=== PATIENT | female | born 1975 | race Caucasian/White ===

== ENCOUNTER → 2017-07-02 | Outpatient (CLI) | payer OTHER ==
[~2017-07-02] MED LIST: LEVO150T7 PO; LEXA1TAB PO; ROCA0.5C PO
--- NOTE | 2017-07-03 10:10 | REP ---
MRI RIGHT FOREARM: TECHNIQUE: Multiple sequences obtained in the axial, coronal, and sagittal planes. There is ill-defined high signal marrow edema on T2-weighted images in the proximal radial shaft. Findings suggest a bone bruise at this location. The remaining visualized osseous structures demonstrate no abnormal marrow signal. Small amount of focal edema is seen in the superficial soft tissues of the mid to proximal forearm just medial to the shaft of the ulna. There is a small amount of fluid in the distal radioulnar joint and also at the anterior margin of the radiocarpal joint. No other soft tissue abnormalities are seen. IMPRESSION: Marrow edema involving the proximal shaft of the radius may represent a bone bruise. Nonspecific focal soft tissue edema in the mid to proximal forearm just medial to the shaft of the ulna. Small amount of fluid in the distal radioulnar joint as well as at the anterior margin of the radiocarpal joint. Signed by Arthur Thomas MD 07/03/2017 08:36 P
--- NOTE | 2017-07-03 10:10 | REP ---
MRI RIGHT ELBOW: TECHNIQUE: Multiple sequences in the axial, coronal and sagittal planes. There is mild ill-defined high signal in the common extensor tendon along the lateral humeral epicondyle compatible with lateral epicondylitis. In addition, there is a small focus of increased signal along the under surface of the tendon complex consistent with a small partial under surface tear. Common flexor tendon medially demonstrates no abnormal signal. There is mild diffuse bone marrow edema involving the very proximal radial shaft, which may represent bone contusion or bone bruise. No other area of abnormal narrow signal is seen. The medial and lateral collateral ligaments are intact. Triceps, biceps, brachialis and brachial radialis are intact and unremarkable. There is a normal amount of joint fluid. No ganglion cyst is seen. I see no other significant abnormality. IMPRESSION: Findings compatible with lateral epicondylitis with a small partial under surface tear of the common extensor tendon. There is diffuse marrow edema involving the very proximal aspect of the radial shaft which may represent a bone bruise. Signed by Arthur Thomas MD 07/03/2017 08:36 P
== END ==
LOC: M RAD 17:00
PROVIDERS: ATTEND Orthopaedic Surgery
DX: M77.11 Lateral epicondylitis, right elbow (principal)

== ENCOUNTER 2018-01-02 06:57 | Day surgery (SDC) | payer OTHER ==
[2018-01-02] MEDS ORDERED: LR 1,000 ML IV ×2 (07:15→11:15)
[2018-01-02] MEDS ORDERED: MIDAZOLAM INJ 2 MG/2 ML VIAL (J2250) As Ordered (09:33)
[2018-01-02] MEDS ORDERED: fentaNYL 100 MCG/2 ML INJECTION (J3010) As Ordered (09:34)
[2018-01-02] MEDS ORDERED: LIDOCAINE 2% INJ 100 MG/5 ML SDV (FOR ANES.) As Ordered (09:37)
[2018-01-02] MEDS ORDERED: PROPOFOL 200 MG/20 ML VIAL As Ordered ×4 (09:37→10:40)
[2018-01-02] MEDS ORDERED: ONDANSETRON 4MG/2ML VIAL (J2405) As Ordered (10:15)
[2018-01-02] MEDS ORDERED: dexameTHASONE 4 MG/ML 1ML VIAL (J1100) As Ordered ×2 (10:24)
[2018-01-02] MEDS: LIDOCAINE W/EPINEPHRINE 1% 20ML VIAL As Ordered ×2 (10:44)
[2018-01-02] MEDS ORDERED: ONDANSETRON 4MG/2ML VIAL (J2405) IV (11:15)
[2018-01-02] MEDS ORDERED: fentaNYL 100 MCG/2 ML INJECTION (J3010) IV (11:15)
[2018-01-02] MEDS: NORCO, ANEXSIA 5/325MG TABLET (HYDROcodone/ACETAMINOPHEN) PO (11:17)
== END 2018-01-02 12:45 | disposition home or self-care (01) ==
LOC: M SDC 06:57
DX: I87.2 Venous insufficiency (chronic) (peripheral) (principal); E66.9 Obesity, unspecified; E03.9 Hypothyroidism, unspecified; F41.9 Anxiety disorder, unspecified; Z88.1 Allergy status to other antibiotic agents; Z88.8 Allergy status to other drugs, medicaments and biological substances; Z79.899 Other long term (current) drug therapy
CPT/HCPCS: 36475

== ENCOUNTER → 2018-01-19 | Outpatient (CLI) | payer OTHER | LOC: M RAD 15:55 | DX: I87.2 Venous insufficiency (chronic) (peripheral) (principal) | CPT/HCPCS: 93971 ==

== ENCOUNTER → 2018-08-08 | Outpatient (CLI) | payer OTHER ==
[~2018-08-08] MED LIST changes: +LEVO100T5 PO; +MUPI2OI; +OMEP20CA3 PO
[2018-08-08 10:11] LABS: HEMOGLOBIN A1c 5.7 %
[2018-08-08 10:30] LABS: ALBUMIN 4.2 GM/DL (3.2-5.2); ALT/SGPT 43 U/L (12-78); BILIRUBIN,TOTAL 0.5 MG/DL (0.2-1.0); BLOOD UREA NITROGEN 14 MG/DL (7-18); CALCIUM LEVEL 8.4 MG/DL (8.5-10.1); CARBON DIOXIDE LEVEL 30 MEQ/L (21-32); CHLORIDE LEVEL 101 MEQ/L (98-107); CREATININE FOR GFR 0.69 MG/DL (0.55-1.30); GLOMERULAR FILTRATION RATE > 60.0 (>58); GLUCOSE, FASTING 87 MG/DL (70-100); POTASSIUM SERUM 3.9 MEQ/L (3.5-5.1); SODIUM LEVEL 139 MEQ/L (136-145); THYROXINE (T4) 8.7 UG/DL (4.5-12.0); TOTAL PROTEIN 7.5 GM/DL (6.4-8.2)
[2018-08-10 09:39] LABS: TOTAL T3 96.7 NG/DL (60.0-181.0)
== END ==
LOC: M LAB 09:13
PROVIDERS: ATTEND Family Medicine
DX: E03.9 Hypothyroidism, unspecified (principal); R73.01 Impaired fasting glucose

== ENCOUNTER 2018-08-24 08:05 | Day surgery (SDC) | payer OTHER ==
[~2018-08-24] VITALS: Ht 162.6 cm; Wt 113.9 kg
[2018-08-24] MEDS ORDERED: LR 1,000 ML IV ONE (08:15)
[2018-08-24] MEDS ORDERED: ONDANSETRON 4MG/2ML VIAL (J2405) As Ordered ONE (08:54)
[2018-08-24] MEDS ORDERED: PROPOFOL 200 MG/20 ML VIAL As Ordered ONE (08:54)
[2018-08-24] MEDS ORDERED: MIDAZOLAM INJ 2 MG/2 ML VIAL (J2250) As Ordered ONE (08:54)
[2018-08-24] MEDS ORDERED: LIDOCAINE 2% INJ 100 MG/5 ML SDV (FOR ANES.) As Ordered ONE (08:54)
[2018-08-24] MEDS ORDERED: METOCLOPRAMIDE INJ 10MG/2ML VIAL (J2765) As Ordered ONE (08:54)
[2018-08-24] MEDS ORDERED: fentaNYL 100 MCG/2 ML INJECTION (J3010) As Ordered ONE (08:54)
[2018-08-24] MEDS ORDERED: ROPIvacaine 0.5% 30 ML INJECTION (J2795 PER 1MG) As Ordered ONE (09:25)
[2018-08-24] MEDS ORDERED: KETOROLAC 60 MG/2 ML VIAL (J1885) As Ordered ONE (10:53)
[2018-08-24] MEDS ORDERED: fentaNYL 100 MCG/2 ML INJECTION (J3010) IV PRN (11:30)
[2018-08-24] MEDS ORDERED: ONDANSETRON 4MG/2ML VIAL (J2405) IV PRN (11:30)
[2018-08-24] MEDS ORDERED: ONDANSETRON 4 MG TAB (S0181) PO PRN (11:30)
[2018-08-24] MEDS ORDERED: MORPHINE 4 MG/ML 1ML VIAL/SYRINGE (J2270) IV PRN (11:30)
[2018-08-24] MEDS ORDERED: PERCOCET 5MG/325MG TAB PO PRN ×2 (11:30)
[2018-08-24] MEDS ORDERED: HYDROMORPHONE HCL 0.5 MG/ 0.5 ML SYRINGE (J1170 PER 1) IV PRN (11:30)
[2018-08-24] MEDS ORDERED: LR 1,000 ML IV SCH (11:30)
[2018-08-24] MEDS ORDERED: ACETAMINOPHEN TAB 650MG DOSE (2X325MG) PO PRN (11:30)
[2018-08-24 13:10] VITALS: BP 153/69
--- NOTE | 2018-08-24 13:16 | RO ---
DATE OF PROCEDURE: 08/24/2018 PREOPERATIVE DIAGNOSIS: Left knee pain plus potential medial meniscus tear. POSTOPERATIVE DIAGNOSIS: Left knee pain soft tissue impingement. PLANNED PROCEDURE: Left knee arthroscopy, plus intra-articular surgery, plus partial medial meniscectomy. PROCEDURE PERFORMED: Left knee arthroscopy, soft tissue debridement, and chondroplasty medial femoral condyle and patellofemoral joint. SURGEON: Francisco Javier Reyna MD ASSESSOR: Kavita Brandon [employer] COMPENSATION CLAIMS ASSISTANT: Dr. Lima TYPE OF ANESTHETIC: General anesthesia. OPERATIVE PREAMBLE: This is a 43-year-old female with persistent medial sided left knee pain and clicking. She had a click when I examined her in the preoperative holding. She had persistent knee pain on the medial side, but no real block to extension and no evidence of instability of the MCL, ACL, PCL or LCL. She still wished to go ahead with the arthroscopy. We discussed pros and cons, risks and benefits of going ahead with surgery. DESCRIPTION OF PROCEDURE: The patient was brought to the operating theater and placed supine on the operating room table. I stress positioned and reduced on the lateral side. A tourniquet was applied to the thigh. 2 grams of intravenous (IV) Ancef were administered. A preoperative time out and check was performed. The knee was already marked by myself preoperatively. We confirmed patient and site. The limb was prepped and draped in the usual sterile fashion. The leg was elevated and the tourniquet inflated to 250 mmHg. I began by making an anterolateral portal. I performed a diagnostic arthroscopy of the entire knee. I went into the lateral gutters. There was no obvious loose body. I visualized and palpated the popliteus tendon which appeared normal. I visualized the patellofemoral joint. There was a moderate sized fat pad that I debrided all the way down to the insertion of the patellar tendon. I debrided the gutters. There was a small plica on the lateral side that I also debrided and removed. Then I went to the medial side of the knee. This was quite difficult given her elevated body mass index (BMI) and tight joint spaces. Eventually I was able to get into the medial compartment. The meniscus had a small wave, but no obvious fraying or undersurface tearing. No capsular sided tearing. The roots appeared normal in their insertion. There was a small area of what looked like synovitis or a little perhaps small tear near the root. I debrided this on the posterior aspect overlying the root of the medial meniscus. The root was still normal after I debrided the small area away. I created an anteromedial portal as well as a superolateral portal to work through with my 4.0 mm shaver to debride away the fat pad. I also debrided away all the soft tissues that appeared to be impinging on the medial side of the knee. I debrided this down to the deep layers of the MCL. This was intact. The MCL appeared taut without evidence of injury. The was some soft tissue impinging that appeared to go over top of the meniscus in full extension and I debrided those away, ensuring that the meniscus was kept intact as well as the intrameniscal ligament. I then placed the leg in [id number] and examined the lateral compartment. This appeared normal without evidence of chondral damages or changes. The lateral meniscus appeared normal. In terms of chondral surfaces on the lateral compartment the tibial side appeared normal. No changes on the tibial side or femoral side. In terms on the medial side, there is definitely grade 1-2 changes and definitely some fraying on the superficial surface on the tibial side. In terms of the chondral surface on the medial distal femur there was some small areas of partial thickness damage due to the scope. I debrided these down to smooth borders. Otherwise the cartilage appeared normal and healthy with only some mild softening. There was no obvious extrusion of the meniscus on the medial side. As I stated earlier, there was a small wave, but no obvious undersurface fragment or areas of loosening that I could pull into the joint. No obvious tearing. No radial tears to speak of. More of degenerative appearing meniscus with moderate to large amount of prepatellar fat pad and soft tissue impingement all the way up into the notch and mostly on the medial side of the knee. This could have definitely been from her partial MCL tear. I also debrided away the ligament mucosa and examined the ACL and PCL ligaments. The ACL appeared normal. I performed anterior and posterior drawer test. The ACL appeared solid. The PCL did have one area proximally that appeared to be a possible small partial avulsion. This looked like an old hematoma right at the 11 o'clock insertion of the PCL and medial side of the notch. I did debride this a little bit, but really ensured that the PCL was intact the entire time. I did do a partial Gillquist view of the medial side to really the examine the posterior horn of the medial meniscus and it did really appear intact. As stated, there was a small area of soft tissue overlying this that I did debride away, but ensured that the root was intact. Once I was satisfied with the procedure, debridement, and examined all compartments, I drained the knee of any remaining intra-articular fluid. Prior to the case, I had instilled about 4-5 mL in each portal site of lidocaine. I closed the portals with subcutaneous #3-0 Monocryl suture and overlaid this with Steri-Strips, 4x8 gauze and ABD with 6 inch Sae wrap. The tourniquet was taken down. The patient was transferred off the operating table and taken to the postanesthetic care unit in stable condition. All sponge, needle and instrument counts were correct and there were no complications or excess blood loss associated with the procedure. Plan for the patient is to be placed in a hinged knee brace which we have gone ahead and done. This is unlocked. She will be weight bearing as tolerated on crutches as she needs. I will see the patient in followup in 2-3 days for followup and to see how she is doing. I will also prescribe one oral aspirin a day for venous thromboembolism (VTE) prophylaxis given that she is an overweight relatively young female.
== END 2018-08-24 13:30 | disposition home or self-care (01) ==
LOC: M SDC 08:05
PROVIDERS: ATTEND Orthopaedic Surgery Sports Medicine
DX: M25.562 Pain in left knee (principal); M67.52 Plica syndrome, left knee; K58.9 Irritable bowel syndrome, unspecified; Z88.1 Allergy status to other antibiotic agents; Z79.899 Other long term (current) drug therapy; E03.9 Hypothyroidism, unspecified; E20.9 Hypoparathyroidism, unspecified; M79.605 Pain in left leg
CPT/HCPCS: 29877; J0690; J1885; J2250; J2405; J2765; J2795; J3010

== ENCOUNTER → 2019-05-04 | Outpatient (CLI) | payer OTHER ==
[~2019-05-04] MED LIST changes: -OMEP20CA3 PO; +OMEP20CA4 PO
--- NOTE | 2019-05-04 17:43 | REP ---
MRI LEFT KNEE: TECHNIQUE: Axial proton density fat saturation, sagittal proton density T2 STIR, water excitation, coronal proton density, proton density fat saturation. There is a tear of the posterior horn of the medial meniscus. Lateral meniscus is intact. Cruciate and collateral ligaments are intact. Extensor mechanism is intact. 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 Otherwise, there is mild global chondromalacia elsewhere. There is no bone marrow edema or occult fracture. Medial and lateral patellar retinacula are intact. There is a moderate joint effusion. There is diffuse synovial thickening and edema particularly superiorly. There is no popliteal cyst. IMPRESSION: There is a tear of the posterior horn of the medial meniscus. 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 There is a moderate joint effusion with diffuse synovial thickening and edema particularly superiorly. Electronically Signed by Arthur Thomas MD 05/05/2019 02:17 P
== END ==
LOC: M RAD 14:25
PROVIDERS: ATTEND Orthopaedic Surgery Sports Medicine
DX: S83.242D Other tear of medial meniscus, current injury, left knee, subsequent encounter (principal); M22.42 Chondromalacia patellae, left knee; M25.462 Effusion, left knee; R60.0 Localized edema

== ENCOUNTER → 2019-07-22 | Outpatient (REF) | payer OTHER ==
[~2019-07-22] MED LIST changes: +OMEP-172 PO; -OMEP20CA4 PO
[2019-07-22 17:27] LABS: BASO # 0.1 10^3/uL (0.0-0.2); BASO % 0.8 % (0.0-1.0); EOS # 0.2 10^3/uL (0.0-0.5); EOS % 2.8 % (0.0-3.0); HEMATOCRIT 45.6 % (36.0-47.0); HEMOGLOBIN 15.5 g/dl (12.0-15.5); LYMPH # 2.7 10^3/uL (1.5-5.0); LYMPH % 42.4 % (24.0-44.0); MEAN CORPUSCULAR VOLUME 91.2 fl (80.0-96.0); MONO # 0.6 10^3/uL (0.0-0.8); MONO % 9.2 % (0.0-5.0); NEUTROPHILS # 2.9 10^3/uL (1.5-8.5); NEUTROPHILS % 44.6 % (36.0-66.0); PLATELET COUNT, AUTOMATED 256 10^3/uL (150-450); WHITE BLOOD COUNT 6.4 10^3/uL (4.0-10.0)
[2019-07-22 17:50] LABS: ALBUMIN 4.3 GM/DL (3.2-5.2); ALT/SGPT 79 U/L (12-78); BILIRUBIN,TOTAL 0.4 MG/DL (0.2-1.0); BLOOD UREA NITROGEN 10 MG/DL (7-18); CALCIUM LEVEL 8.6 MG/DL (8.5-10.1); CARBON DIOXIDE LEVEL 27 MEQ/L (21-32); CHLORIDE LEVEL 104 MEQ/L (98-107); CREATININE FOR GFR 0.75 MG/DL (0.55-1.30); GLOMERULAR FILTRATION RATE > 60.0 (>58); GLUCOSE, FASTING 94 MG/DL (70-100); IRON (FE) 93 UG/DL (50-170); MAGNESIUM LEVEL 2.2 MG/DL (1.8-2.4); SODIUM LEVEL 138 MEQ/L (136-145); TOTAL PROTEIN 8.1 GM/DL (6.4-8.2)
== END ==
LOC: M SFHCCLAY 10:49
PROVIDERS: ATTEND Family Medicine
DX: R21 Rash and other nonspecific skin eruption (principal); L29.3 Anogenital pruritus, unspecified; E55.9 Vitamin D deficiency, unspecified; E03.9 Hypothyroidism, unspecified; M05.79 Rheumatoid arthritis with rheumatoid factor of multiple sites without organ or systems involvement

== ENCOUNTER → 2020-04-18 | Outpatient (REF) | payer OTHER ==
[~2020-04-18] MED LIST changes: -OMEP-172 PO; +OMEP1CAP73 PO
[2020-04-19 13:47] LABS: FREE T4 1.84 NG/DL (0.76-1.46); THYROID STIMULATING HORMONE 0.2 uIU/ML (0.358-3.740); TOTAL T3 120.1 NG/DL (60.0-181.0)
== END ==
LOC: M SFHCCLAY 15:21
PROVIDERS: ATTEND Family Medicine
DX: E03.9 Hypothyroidism, unspecified (principal)

== ENCOUNTER → 2020-05-15 | Outpatient (CLI) | payer OTHER ==
[2020-05-15 17:09] LABS: BASO # 0.1 10^3/uL (0.0-0.2); BASO % 0.5 % (0.0-1.0); EOS # 0.1 10^3/uL (0.0-0.5); EOS % 0.8 % (0.0-3.0); HEMATOCRIT 44.9 % (36.0-47.0); HEMOGLOBIN 14.7 g/dl (12.0-15.5); LYMPH # 4.1 10^3/uL (1.5-5.0); MEAN CORPUSCULAR HEMOGLOBIN 29.6 pg (27.0-33.0); MEAN CORPUSCULAR HGB CONC 32.7 g/dl (32.0-36.5); MEAN CORPUSCULAR VOLUME 90.3 fl (80.0-96.0); MONO # 0.6 10^3/uL (0.0-0.8); MONO % 6.1 % (0.0-5.0); NEUTROPHILS # 4.9 10^3/uL (1.5-8.5); NEUTROPHILS % 50.3 % (36.0-66.0); PLATELET COUNT, AUTOMATED 307 10^3/uL (150-450); RED BLOOD COUNT 4.97 10^6/uL (4.00-5.40); WHITE BLOOD COUNT 9.8 10^3/uL (4.0-10.0)
[2020-05-15 19:19] LABS: ALBUMIN 4.2 GM/DL (3.2-5.2); ALT/SGPT 65 U/L (12-78); BILIRUBIN,TOTAL 0.3 MG/DL (0.2-1.0); BLOOD UREA NITROGEN 13 MG/DL (7-18); CALCIUM LEVEL 9.1 MG/DL (8.5-10.1); CARBON DIOXIDE LEVEL 29 MEQ/L (21-32); CHLORIDE LEVEL 101 MEQ/L (98-107); CREATININE FOR GFR 0.75 MG/DL (0.55-1.30); GLOMERULAR FILTRATION RATE > 60.0 (>58); GLUCOSE, FASTING 79 MG/DL (70-100); POTASSIUM SERUM 3.9 MEQ/L (3.5-5.1); SODIUM LEVEL 136 MEQ/L (136-145); TOTAL PROTEIN 8.1 GM/DL (6.4-8.2)
== END ==
LOC: M LAB 14:05
PROVIDERS: ATTEND Physician Assistant
DX: M06.09 Rheumatoid arthritis without rheumatoid factor, multiple sites (principal)

== ENCOUNTER → 2020-07-10 | Outpatient (REF) | payer OTHER ==
[2020-07-11 12:00] LABS: BASO # 0.1 10^3/uL (0.0-0.2); BASO % 0.6 % (0.0-1.0); EOS # 0.1 10^3/uL (0.0-0.5); EOS % 0.9 % (0.0-3.0); HEMATOCRIT 47.2 % (36.0-47.0); HEMOGLOBIN 15.5 g/dl (12.0-15.5); LYMPH # 4.3 10^3/uL (1.5-5.0); LYMPH % 45.3 % (24.0-44.0); MEAN CORPUSCULAR HEMOGLOBIN 30.5 pg (27.0-33.0); MEAN CORPUSCULAR HGB CONC 32.8 g/dl (32.0-36.5); MEAN CORPUSCULAR VOLUME 92.7 fl (80.0-96.0); MONO # 0.5 10^3/uL (0.0-0.8); MONO % 5.3 % (0.0-5.0); NEUTROPHILS # 4.5 10^3/uL (1.5-8.5); NEUTROPHILS % 47.6 % (36.0-66.0); PLATELET COUNT, AUTOMATED 290 10^3/uL (150-450); RED BLOOD COUNT 5.09 10^6/uL (4.00-5.40); WHITE BLOOD COUNT 9.4 10^3/uL (4.0-10.0)
[2020-07-11 12:32] LABS: ALBUMIN 4.2 GM/DL (3.2-5.2); ALT/SGPT 52 U/L (12-78); BILIRUBIN,TOTAL 0.6 MG/DL (0.2-1.0); BLOOD UREA NITROGEN 12 MG/DL (7-18); CALCIUM LEVEL 9.2 MG/DL (8.5-10.1); CARBON DIOXIDE LEVEL 34 MEQ/L (21-32); CHLORIDE LEVEL 101 MEQ/L (98-107); CHOLESTEROL LEVEL 253 MG/DL (<200); CHOLESTEROL RISK RATIO 3.513 (<5); CREATININE FOR GFR 0.77 MG/DL (0.55-1.30); GLOMERULAR FILTRATION RATE > 60.0 (>58); GLUCOSE, FASTING 82 MG/DL (70-100); HDL CHOLESTEROL 72 MG/DL (>40); LDL CHOLESTEROL 129 MG/DL (<100); NON-HDL-C 181 MG/DL; POTASSIUM SERUM 4.9 MEQ/L (3.5-5.1); SODIUM LEVEL 137 MEQ/L (136-145); TOTAL PROTEIN 8.5 GM/DL (6.4-8.2); TRIGLYCERIDES LEVEL 259 MG/DL (<150)
== END ==
LOC: M LABDRAWC 11:26
PROVIDERS: ATTEND Physician Assistant
DX: Z79.899 Other long term (current) drug therapy (principal)

== ENCOUNTER → 2020-10-05 | Outpatient (CLI) | payer OTHER ==
--- NOTE | 2020-10-05 17:02 | REP ---
INDICATION: RT KNEE PAIN. COMPARISON: None. TECHNIQUE: There are four views: FINDINGS: Mineralization and joint spaces are unremarkable. There is no fracture or dislocation. There are no calcifications or foreign bodies. There is no effusion. IMPRESSION: Negative right knee. <Electronically signed by Arthur Lino > 10/05/20 1951
== END ==
LOC: M SOG 15:55
PROVIDERS: ATTEND Orthopaedic Surgery Sports Medicine
DX: M17.0 Bilateral primary osteoarthritis of knee (principal)

== ENCOUNTER → 2020-10-09 | Outpatient (CLI) | payer BC, OTHER ==
[2020-10-09 18:55] LABS: HEMATOCRIT 46.3 % (36.0-47.0); HEMOGLOBIN 15.6 g/dl (12.0-15.5); MEAN CORPUSCULAR HGB CONC 33.7 g/dl (32.0-36.5); MEAN CORPUSCULAR VOLUME 91.9 fl (80.0-96.0); PLATELET COUNT, AUTOMATED 320 10^3/uL (150-450); RED BLOOD COUNT 5.04 10^6/uL (4.00-5.40); WHITE BLOOD COUNT 11.6 10^3/uL (4.0-10.0)
[2020-10-09 19:27] LABS: HEMOGLOBIN A1c 5.6 %
[2020-10-09 20:08] LABS: ATYPICAL LYMPH 6 % (0-5); BASOPHILS 2 % (0-1); EOSINOPHILS 2 % (0-3); LYMPHOCYTES 44 % (16-44); MONOCYTES 3 % (0-5); NEUTROPHILS 43 % (28-66); PLATELET ESTIMATE NORMAL (NORMAL)
[2020-10-09 21:18] LABS: ALBUMIN 4.2 GM/DL (3.2-5.2); ALT/SGPT 38 U/L (12-78); BILIRUBIN,TOTAL 0.4 MG/DL (0.2-1.0); BLOOD UREA NITROGEN 16 MG/DL (7-18); CALCIUM LEVEL 9.3 MG/DL (8.5-10.1); CARBON DIOXIDE LEVEL 27 MEQ/L (21-32); CHLORIDE LEVEL 103 MEQ/L (98-107); CREATININE FOR GFR 0.74 MG/DL (0.55-1.30); FREE T4 1.67 NG/DL (0.76-1.46); GLOMERULAR FILTRATION RATE > 60.0 (>58); GLUCOSE, FASTING 105 MG/DL (70-100); POTASSIUM SERUM 4.4 MEQ/L (3.5-5.1); SODIUM LEVEL 137 MEQ/L (136-145); THYROID STIMULATING HORMONE 0.791 uIU/ML (0.358-3.740); TOTAL PROTEIN 8.6 GM/DL (6.4-8.2)
[2020-10-10 13:51] LABS: TOTAL 25(OH) VITAMIN D 20.5 NG/ML (30.0-100.0)
== END ==
LOC: M LAB 18:13
PROVIDERS: ATTEND Family Medicine
DX: R73.01 Impaired fasting glucose (principal); E55.9 Vitamin D deficiency, unspecified; E03.9 Hypothyroidism, unspecified

== ENCOUNTER → 2020-10-09 | Outpatient (REF) | payer OTHER | LOC: M SFHCCLAY 16:08 | PROVIDERS: ATTEND Family Medicine | DX: R73.01 Impaired fasting glucose (principal); E55.9 Vitamin D deficiency, unspecified; E03.9 Hypothyroidism, unspecified; M05.79 Rheumatoid arthritis with rheumatoid factor of multiple sites without organ or systems involvement ==

== ENCOUNTER → 2021-05-09 | Outpatient (CLI) | payer BC, OTHER ==
[2021-05-09 20:00] LABS: HEPATITIS B CORE ANTIBODY IGM NEGATIVE (NEGATIVE); HEPATITIS B SURFACE ANTIGEN NEGATIVE (NEGATIVE)
== END ==
LOC: M LAB 17:55
DX: R53.83 Other fatigue (principal); Z11.59 Encounter for screening for other viral diseases; Z72.89 Other problems related to lifestyle; Z79.899 Other long term (current) drug therapy; M06.09 Rheumatoid arthritis without rheumatoid factor, multiple sites

== ENCOUNTER → 2021-07-24 | Outpatient (REF) | payer OTHER | LOC: M SFHCCLAY 14:39 | PROVIDERS: ATTEND Physician Assistant | DX: R09.81 Nasal congestion (principal) ==

== ENCOUNTER → 2021-08-17 | Outpatient (CLI) | payer BC, OTHER | LOC: M WHC 13:15 | PROVIDERS: ATTEND Family Medicine | DX: Z53.9 Procedure and treatment not carried out, unspecified reason (principal) ==

== ENCOUNTER → 2021-08-17 | Outpatient (CLI) | payer BC, OTHER ==
[2021-08-17 13:33] LABS: BASO # 0.1 10^3/uL (0.0-0.2); BASO % 0.6 % (0.0-1.0); EOS # 0.1 10^3/uL (0.0-0.5); HEMOGLOBIN 15.2 g/dl (12.0-15.5); LYMPH # 4.2 10^3/uL (1.5-5.0); LYMPH % 45.4 % (24.0-44.0); MEAN CORPUSCULAR HEMOGLOBIN 31.1 pg (27.0-33.0); MEAN CORPUSCULAR HGB CONC 34.5 g/dl (32.0-36.5); MONO # 0.5 10^3/uL (0.0-0.8); MONO % 5.3 % (2.0-8.0); NEUTROPHILS # 4.4 10^3/uL (1.5-8.5); NEUTROPHILS % 47.6 % (36.0-66.0); PLATELET COUNT, AUTOMATED 305 10^3/uL (150-450); RED BLOOD COUNT 4.89 10^6/uL (4.00-5.40); WHITE BLOOD COUNT 9.3 10^3/uL (4.0-10.0)
[2021-08-17 13:52] LABS: ERYTHROCYTE SEDIMENTATION RATE 6 mm/hr (0-20)
== END ==
LOC: M LAB 12:39
DX: M06.09 Rheumatoid arthritis without rheumatoid factor, multiple sites (principal); Z79.899 Other long term (current) drug therapy

== ENCOUNTER → 2021-08-17 | Outpatient (CLI) | payer BC, OTHER ==
[2021-08-17 14:11] LABS: ALT/SGPT 46 U/L (12-78); BILIRUBIN,TOTAL 0.2 MG/DL (0.2-1.0); BLOOD UREA NITROGEN 18 MG/DL (7-18); CALCIUM LEVEL 9.4 MG/DL (8.5-10.1); CARBON DIOXIDE LEVEL 29 MEQ/L (21-32); CHLORIDE LEVEL 102 MEQ/L (98-107); CREATININE FOR GFR 0.72 MG/DL (0.55-1.30); GLOMERULAR FILTRATION RATE > 60.0 (>58); GLUCOSE, FASTING 94 MG/DL (70-100); POTASSIUM SERUM 3.7 MEQ/L (3.5-5.1); SODIUM LEVEL 136 MEQ/L (136-145); THYROID STIMULATING HORMONE 0.759 uIU/ML (0.358-3.740)
[2021-08-17 14:18] LABS: HEMOGLOBIN A1c 5.6 %
== END ==
LOC: M LAB 12:44
PROVIDERS: ATTEND Family Medicine
DX: E03.9 Hypothyroidism, unspecified (principal); R73.01 Impaired fasting glucose; E55.9 Vitamin D deficiency, unspecified

== ENCOUNTER → 2021-09-03 | Outpatient (CLI) | payer BC, OTHER | LOC: M WHC 12:06 | PROVIDERS: ATTEND Family Medicine | DX: N64.4 Mastodynia (principal) | CPT/HCPCS: 77066; G0279 ==

== ENCOUNTER → 2021-10-31 | Outpatient (CLI) | payer BC, OTHER | LOC: M SOG 08:13 | PROVIDERS: ATTEND Orthopaedic Surgery Adult Reconstructive Orthopaedic Surgery | DX: M17.11 Unilateral primary osteoarthritis, right knee (principal) ==

== ENCOUNTER → 2021-12-21 | Outpatient (CLI) | payer BC, OTHER ==
[2021-12-21 18:37] LABS: BASO # 0.1 10^3/uL (0.0-0.2); BASO % 0.5 % (0.0-1.0); EOS # 0.1 10^3/uL (0.0-0.5); EOS % 1.2 % (0.0-3.0); HEMATOCRIT 41.7 % (36.0-47.0); HEMOGLOBIN 14.5 g/dl (12.0-15.5); LYMPH # 3.5 10^3/uL (1.5-5.0); LYMPH % 36.7 % (24.0-44.0); MEAN CORPUSCULAR HEMOGLOBIN 30.9 pg (27.0-33.0); MEAN CORPUSCULAR HGB CONC 34.8 g/dl (32.0-36.5); MEAN CORPUSCULAR VOLUME 88.7 fl (80.0-96.0); MONO # 0.5 10^3/uL (0.0-0.8); MONO % 5.7 % (2.0-8.0); NEUTROPHILS # 5.3 10^3/uL (1.5-8.5); NEUTROPHILS % 55.7 % (36.0-66.0); PLATELET COUNT, AUTOMATED 274 10^3/uL (150-450); WHITE BLOOD COUNT 9.5 10^3/uL (4.0-10.0)
[2021-12-21 18:59] LABS: HEMOGLOBIN A1c 5.5 %
[2021-12-21 19:09] LABS: ALBUMIN 4.4 GM/DL (3.2-5.2); ALT/SGPT 55 U/L (12-78); BILIRUBIN,TOTAL 0.7 MG/DL (0.2-1.0); BLOOD UREA NITROGEN 19 MG/DL (7-18); CALCIUM LEVEL 9.9 MG/DL (8.5-10.1); CARBON DIOXIDE LEVEL 26 MEQ/L (21-32); CHLORIDE LEVEL 103 MEQ/L (98-107); CHOLESTEROL LEVEL 206 MG/DL (<200); CHOLESTEROL RISK RATIO 3.745 (<5); FREE T4 1.77 NG/DL (0.76-1.46); GLOMERULAR FILTRATION RATE > 60.0 (>58); GLUCOSE, FASTING 89 MG/DL (70-100); HDL CHOLESTEROL 55 MG/DL (>40); LDL CHOLESTEROL 123 MG/DL (<100); MAGNESIUM LEVEL 2.3 MG/DL (1.8-2.4); NON-HDL-C 151 MG/DL; POTASSIUM SERUM 4.8 MEQ/L (3.5-5.1); SODIUM LEVEL 138 MEQ/L (136-145); TOTAL PROTEIN 8.1 GM/DL (6.4-8.2); TRIGLYCERIDES LEVEL 141 MG/DL (<150)
[2021-12-21 19:31] LABS: TOTAL T3 104.7 NG/DL (60.0-181.0)
== END ==
LOC: M RAD 18:07
PROVIDERS: ATTEND Family Medicine
DX: I10 Essential (primary) hypertension (principal)

== ENCOUNTER → 2022-02-21 | Outpatient (CLI) | payer BC, OTHER | LOC: M RAD 17:34 | PROVIDERS: ATTEND Family Medicine | DX: M79.671 Pain in right foot (principal); M54.2 Cervicalgia ==

== ENCOUNTER → 2022-02-28 | Outpatient (CLI) | payer BC, OTHER | LOC: M PLAIMG 08:16 | PROVIDERS: ATTEND Orthopaedic Surgery Hand Surgery | DX: M79.671 Pain in right foot (principal) ==

== ENCOUNTER → 2022-02-28 | Outpatient (CLI) | payer BC, OTHER | LOC: M PLAIMG 08:12 | PROVIDERS: ATTEND Family Medicine | DX: M47.892 Other spondylosis, cervical region (principal) ==

== ENCOUNTER → 2022-05-14 | Outpatient (CLI) | payer BC, OTHER | LOC: M LABSMTC 09:06 | DX: Z01.812 Encounter for preprocedural laboratory examination (principal); Z20.822 Contact with and (suspected) exposure to COVID-19 ==

== ENCOUNTER → 2022-07-19 | Outpatient (REF) | payer OTHER ==
[2022-07-19 11:39] LABS: BASO % 0.5 % (0.0-1.0); EOS # 0.1 10^3/uL (0.0-0.5); EOS % 1.3 % (0.0-3.0); HEMOGLOBIN 15.4 g/dl (12.0-15.5); LYMPH # 2.6 10^3/uL (1.5-5.0); LYMPH % 34.4 % (24.0-44.0); MEAN CORPUSCULAR HEMOGLOBIN 30.6 pg (27.0-33.0); MEAN CORPUSCULAR HGB CONC 33.5 g/dl (32.0-36.5); MEAN CORPUSCULAR VOLUME 91.3 fl (80.0-96.0); MONO # 0.6 10^3/uL (0.0-0.8); MONO % 7.3 % (2.0-8.0); NEUTROPHILS # 4.3 10^3/uL (1.5-8.5); NEUTROPHILS % 56.2 % (36.0-66.0); PLATELET COUNT, AUTOMATED 285 10^3/uL (150-450); RED BLOOD COUNT 5.04 10^6/uL (4.00-5.40); WHITE BLOOD COUNT 7.6 10^3/uL (4.0-10.0)
[2022-07-19 11:48] LABS: HEMOGLOBIN A1c 5.4 % (4.0-6.0)
[2022-07-19 12:10] LABS: ALKALINE PHOSPHATASE 62 U/L (46-116); ALT/SGPT 34 U/L (7.0-40); AST/SGOT 26 U/L (<34); BILIRUBIN,TOTAL 0.6 MG/DL (0.3-1.2); BLOOD UREA NITROGEN 15 MG/DL (9-23); CALCIUM LEVEL 9.8 MG/DL (8.5-10.1); CARBON DIOXIDE LEVEL 30 MMOL/L (20-31); CHLORIDE LEVEL 99 MMOL/L (98-107); FREE T4 1.31 NG/DL (0.89-1.76); GLOMERULAR FILTRATION RATE > 60.0 (>58); GLUCOSE, FASTING 88 MG/DL (60-100); POTASSIUM SERUM 4.4 MMOL/L (3.5-5.1); SODIUM LEVEL 138 MMOL/L (136-145); THYROID STIMULATING HORMONE 0.201 uIU/ML (0.55-4.78); TOTAL PROTEIN 7.5 G/DL (5.7-8.2)
== END ==
LOC: M SFHCCLAY 07:39
PROVIDERS: ATTEND Family Medicine
DX: I10 Essential (primary) hypertension (principal); R73.01 Impaired fasting glucose; E55.9 Vitamin D deficiency, unspecified; E03.9 Hypothyroidism, unspecified

== ENCOUNTER → 2023-01-10 | Outpatient (CLI) | payer OTHER, BC | LOC: M SOG 08:16 | PROVIDERS: ATTEND Orthopaedic Surgery | DX: M25.561 Pain in right knee (principal) ==

== ENCOUNTER → 2023-04-15 | Outpatient (CLI) | payer BC, OTHER | LOC: M RAD 14:46 | PROVIDERS: ATTEND Family Medicine | DX: M79.675 Pain in left toe(s) (principal) ==

== ENCOUNTER → 2023-06-27 | Outpatient (REF) | payer BC, OTHER | LOC: M SFHCCLAY 18:09 | PROVIDERS: ATTEND Family Medicine | DX: D22.61 Melanocytic nevi of right upper limb, including shoulder (principal) ==

== ENCOUNTER → 2024-02-24 | Outpatient (CLI) | payer BC ==
[2024-02-24 18:44] LABS: HEMATOCRIT 44.3 % (36.0-47.0); HEMOGLOBIN 15.2 g/dl (12.0-15.5); MEAN CORPUSCULAR HEMOGLOBIN 30.1 pg (27.0-33.0); MEAN CORPUSCULAR HGB CONC 34.3 g/dl (32.0-36.5); MEAN CORPUSCULAR VOLUME 87.7 fl (80.0-96.0); PLATELET COUNT, AUTOMATED 265 10^3/uL (150-450); RED BLOOD COUNT 5.05 10^6/uL (4.00-5.40); WHITE BLOOD COUNT 7.6 10^3/uL (4.0-10.0)
[2024-02-24 18:52] LABS: ERYTHROCYTE SEDIMENTATION RATE 22 mm/hr (0-30)
[2024-02-24 19:04] LABS: HEMOGLOBIN A1c 5.8 % (4.0-6.0)
[2024-02-24 19:18] LABS: ALBUMIN 4.3 G/DL (3.2-5.2); ALKALINE PHOSPHATASE 73 U/L (46-116); ALT/SGPT 73 U/L (7.0-40); AST/SGOT 42 U/L (<34); BILIRUBIN,TOTAL 0.5 MG/DL (0.3-1.2); BLOOD UREA NITROGEN 19 MG/DL (9-23); CALCIUM LEVEL 9.7 MG/DL (8.5-10.1); CARBON DIOXIDE LEVEL 28 MMOL/L (20-31); CHLORIDE LEVEL 104 MMOL/L (98-107); CHOLESTEROL LEVEL 191 MG/DL (<200); CHOLESTEROL RISK RATIO 3.75 (<5); CREATININE FOR GFR 0.65 MG/DL (0.55-1.30); GLOMERULAR FILTRATION RATE > 60.0 (>51); GLUCOSE, FASTING 109 MG/DL (60-100); HDL CHOLESTEROL 50.8 MG/DL (>40); LDL CHOLESTEROL 104.6 MG/DL (<100); LUTEINIZING HORMONE 54.2 mIU/ML; NON-HDL-C 140.2 MG/DL; RHEUMATOID FACTOR QUANT 11.6 IU/ML (<14); SODIUM LEVEL 138 MMOL/L (136-145); THYROID STIMULATING HORMONE 0.079 uIU/ML (0.55-4.78); TOTAL PROTEIN 8.1 G/DL (5.7-8.2); TOTAL T3 150.6 NG/DL (60.0-181.0); TRIGLYCERIDES LEVEL 178 MG/DL (<150)
[2024-02-24 19:19] LABS: FREE T4 1.32 NG/DL (0.89-1.76); PROLACTIN 6.98 NG/ML
[2024-02-27 00:52] LABS: CYCLIC CITRULLINATED PEPTIDE < 16 UNITS (<20)
[2024-02-27 11:03] LABS: ANA PATTERN Nuclear, Speckled (NEGATIVE); ANA PATTERN 2 Nuclear, Homogeneous; ANA SCREEN, IFA POSITIVE (NEGATIVE); ANA TITER > OR = 1:1280 titer (<1:40)
== END ==
LOC: M LAB 17:50
PROVIDERS: ATTEND Family Medicine
DX: E03.9 Hypothyroidism, unspecified (principal); R73.01 Impaired fasting glucose; E55.9 Vitamin D deficiency, unspecified; M05.79 Rheumatoid arthritis with rheumatoid factor of multiple sites without organ or systems involvement; R76.8 Other specified abnormal immunological findings in serum; R61 Generalized hyperhidrosis

== ENCOUNTER → 2024-02-24 | Outpatient (REF) | payer BC | LOC: M SFHCCLAY 10:30 | PROVIDERS: ATTEND Family Medicine | DX: I10 Essential (primary) hypertension (principal); E03.9 Hypothyroidism, unspecified; R73.01 Impaired fasting glucose; E55.9 Vitamin D deficiency, unspecified; M05.79 Rheumatoid arthritis with rheumatoid factor of multiple sites without organ or systems involvement; R76.8 Other specified abnormal immunological findings in serum; R61 Generalized hyperhidrosis ==

== ENCOUNTER → 2024-05-25 | Outpatient (REF) | payer BC | LOC: M SFHCCLAY 12:02 | PROVIDERS: ATTEND Physician Assistant | DX: J02.9 Acute pharyngitis, unspecified (principal) ==

== ENCOUNTER → 2024-06-15 | Outpatient (CLI) | payer BC ==
[2024-06-15 12:33] LABS: FREE T4 1.23 NG/DL (0.89-1.76); TOTAL T3 140.5 NG/DL (60.0-181.0)
[2024-06-15 13:48] LABS: THYROID STIMULATING HORMONE 0.057 uIU/ML (0.55-4.78)
== END ==
LOC: M LAB 11:05
PROVIDERS: ATTEND Family Medicine
DX: E03.9 Hypothyroidism, unspecified (principal)

== ENCOUNTER → 2024-08-16 | Outpatient (REF) | payer BC | LOC: M SFHCCLAY 13:56 | PROVIDERS: ATTEND Family Medicine | DX: L98.9 Disorder of the skin and subcutaneous tissue, unspecified (principal) ==

== ENCOUNTER → 2024-08-27 | Outpatient (REF) | payer BC | LOC: M SFHCCLAY 15:49 | PROVIDERS: ATTEND Family Medicine | DX: Z53.9 Procedure and treatment not carried out, unspecified reason (principal) ==

== ENCOUNTER → 2024-10-07 | Outpatient (CLI) | payer BC | LOC: M PLAIMG 08:07 | PROVIDERS: ATTEND Family Medicine | DX: J32.8 Other chronic sinusitis (principal) ==

== ENCOUNTER → 2024-11-23 | Outpatient (CLI) | payer BC | LOC: M CLY 13:22 | PROVIDERS: ATTEND Physician Assistant | DX: S69.92XA Unspecified injury of left wrist, hand and finger(s), initial encounter (principal); X58.XXXA Exposure to other specified factors, initial encounter; Y92.9 Unspecified place or not applicable ==

== ENCOUNTER → 2024-11-30 | Outpatient (CLI) | payer BC | LOC: M CLY 16:37 | PROVIDERS: ATTEND Family Medicine | DX: M25.532 Pain in left wrist (principal); Z53.8 Procedure and treatment not carried out for other reasons ==

== ENCOUNTER → 2025-04-14 | Outpatient (CLI) | payer BC | LOC: M LAB 17:11 | PROVIDERS: ATTEND Family Medicine | DX: Z13.71 Encounter for nonprocreative screening for genetic disease carrier status (principal); Z82.79 Family history of other congenital malformations, deformations and chromosomal abnormalities ==